=== PATIENT | female | born 1975 ===

== ENCOUNTER 2017-01-19 17:44 | Emergency (ER) | payer BC, OTHER ==
[2017-01-19 17:52] VITALS: BP 122/56; PULSE 68; RESP 18; TEMP 98; O2SAT 98
[2017-01-19] MEDS ORDERED: Sodium Chloride 0.9% 1,000 ML IV STA (18:17)
--- NOTE | 2017-01-19 18:24 | ED PDOC ---
HPI: Headache Time Seen by Provider: 01/19/17 18:12 Chief Complaint (Nursing): Headache Chief Complaint (Provider): Headache History Per: Patient History/Exam Limitations: no limitations Onset/Duration Of Symptoms: Days (x 3) Current Symptoms Are (Timing): Still Present Additional Complaint(s): Nathaniel is a 41 year old female with a past medical history of lupus who presents to the Emergency Department complaining of headache for 3 days. Patient states she woke up with headache. Pain in both side of her head. Denies vomiting, but feels a little nausea and shortness of breath. Admits to taking Tylenol with minor relief. Was referred to see vessel specialist. PMD: Cira Garrido Past Medical History Reviewed: Historical Data, Nursing Documentation, Vital Signs Vital Signs: Last Vital Signs Temp 98 F 01/19/17 17:50 Pulse 68 01/19/17 17:50 Resp 18 01/19/17 17:50 BP 122/56 L 01/19/17 17:50 Pulse Ox 98 01/19/17 17:50 - Medical History PMH: Migraine - Surgical History Surgical History: - Family History Family History: States: Unknown Family Hx - Immunization History Hx Tetanus Toxoid Vaccination: No Hx Influenza Vaccination: No Hx Pneumococcal Vaccination: No - Home Medications Home Medications: Ambulatory Orders Medication Instructions Recorded Naproxen [Naprosyn] 1 tab PO BID PRN #25 tab 05/03/15 Naproxen 1 tab PO Q12 PRN #6 tab 01/19/17 - Allergies Allergies/Adverse Reactions: Allergies Allergy/AdvReac Type Severity Reaction Status Date / Time No Known Allergies Allergy Verified 05/03/15 09:40 Review of Systems ROS Statement: Except As Marked, All Systems Reviewed And Found Negative Respiratory: Positive for: Shortness of Breath Gastrointestinal: Positive for: Nausea. Negative for: Vomiting Neurological: Positive for: Headache Physical Exam - Reviewed Nursing Documentation Reviewed: Yes Vital Signs Reviewed: Yes - Physical Exam Appears: Positive for: Well, Non-toxic Head Exam: Positive for: ATRAUMATIC, NORMAL INSPECTION, NORMOCEPHALIC Skin: Positive for: Normal Color Eye Exam: Positive for: Other (Horizontal nystagmus) Neck: Positive for: Normal Respiratory: Positive for: Normal Breath Sounds (Lungs clear to auscultation bilaterally) Extremity: Positive for: Normal ROM (5/5 upper and lower strength) Neurologic/Psych: Positive for: Alert, Oriented (x 3), Other. Negative for: Facial Droop (Finger to Nose Intact) - Laboratory Results Result Diagrams: 01/19/17 18:59 01/19/17 18:59 - ECG O2 Sat by Pulse Oximetry: 98 (RA) Pulse Ox Interpretation: Normal - Progress ED Course And Treament: HEAD CT: NAD CTA CHEST:IMPRESSION: 1. No CT evidence of pulmonary embolism. 2. Pulmonary nodule. For low-risk patients, no follow-up is necessary. For high- risk patients (smoking history or other known risk factors) an optional CT at 12 months could be performed. 3. Incidental/non-acute findings are described above. EKG: NSR 68BPM; NO ECTOPY NO ACUTE CHANGES Medical Decision Making Medical Decision Making: Time: 18:18 Plan: - CT Head without Contrast - EKG - BMP - Mangesium - Troponin I - CBC - D Dimer - Chest X-Ray - Sodium Chloride 0.;9% 1,000 ml IV 1,000 mls/hr - Reglan Time: 19:40 - CT Angio Chest Scribe Attestation: Documented by Ezequiel Valencia, acting as a scribe for Sebas Tsang PA-C Provider Scribe Attestation: All medical record entries made by the Scribe were at my direction and personally dictated by me. I have reviewed the chart and agree that the record accurately reflects my personal performance of the history, physical exam, medical decision making, and the department course for this patient. I have also personally directed, reviewed, and agree with the discharge instructions and disposition. Disposition - Clinical Impression Clinical Impression: Headache, Dyspnea - Patient ED Disposition Is Patient to be Admitted: No - Disposition Disposition: Routine/Home Disposition Time: 22:58 Condition: FAIR Prescriptions: Naproxen 1 tab PO Q12 PRN #6 tab PRN Reason: Pain, Moderate (4-7) Instructions: Tension Headache (ED), Dyspnea (ED) Forms: [facility] ([place]), [facility] ED School/Work Excuse
[2017-01-19 19:05] LABS: BASO % 0.6 % (0.0-2.0); EOS # 0.2 K/uL (0.0-0.7); EOS % 2.1 % (0.0-4.0); HEMATOCRIT 37.6 % (34.0-47.0); LYMPH # 2.4 K/uL (1.0-4.3); LYMPH % 28.9 % (20.0-40.0); MEAN CELL VOLUME 92.2 fl (81.0-99.0); MEAN CORPUSCULAR HEMOGLOBIN 31.1 pg (27.0-31.0); MEAN CORPUSCULAR HGB CONC 33.8 g/dL (33.0-37.0); MEAN PLATELET VOLUME 8.7 fl (7.2-11.7); MONO # 0.5 K/uL (0.0-0.8); MONO % 5.7 % (0.0-10.0); NEUT # 5.2 K/uL (1.8-7.0); NEUT % 62.7 % (50.0-75.0); NRBC % 0.1 % (0.0-0.0); RED CELL DISTRIBUTION WIDTH 13.5 % (11.5-14.5); WHITE BLOOD COUNT 8.3 K/uL (4.8-10.8)
[2017-01-19 19:14] LABS: BLOOD UREA NITROGEN 18 mg/dl (7-17); CALCIUM 9.3 mg/dL (8.4-10.2); CARBON DIOXIDE 28 mmol/L (22-30); CHLORIDE 103 mmol/L (98-107); GFR AFRICAN-AMERICAN > 60; GLUCOSE,RANDOM 94 mg/dL (65-105); MAGNESIUM 1.7 MG/DL (1.6-2.3); POTASSIUM 4.4 MMOL/L (3.6-5.0); SODIUM 141 mmol/l (132-148)
[2017-01-19] MEDS ORDERED: Sodium Chloride 0.9% 50 ML IV ONE (21:59)
[2017-01-19] MEDS ORDERED: Iodixanol 320 MG/ML 100 ML BOTTLE IV ONE (21:59)
--- NOTE | 2017-01-19 22:22 | CT ---
EXAM: CT Head Without Intravenous Contrast CLINICAL HISTORY: 41 years old, female; Pain; Headache; Other: Napoles's b/l sides; Patient HX: Dx lupus jan 2016; Additional info: Head ache TECHNIQUE: Axial computed tomography images of the head/brain without intravenous contrast. All CT scans at this facility use one or more dose reduction techniques, viz.: automated exposure control; ma/kV adjustment per patient size (including targeted exams where dose is matched to indication; i.e. head); or iterative reconstruction technique. Coronal and sagittal reformatted images were created and reviewed. COMPARISON: CT - HEAD^HEAD ROUTINE (ADULT) 2009-11-26 06:38 FINDINGS: Brain: No intracranial hemorrhage. No mass. No definite edema. Ventricles: No hydrocephalus. Bones/joints: No acute fracture. Soft tissues: Unremarkable. Sinuses: No acute sinusitis. Mastoid air cells: No mastoid effusion. Orbits: Unremarkable as visualized. IMPRESSION: 1. No acute intracranial abnormality.
--- NOTE | 2017-01-19 22:53 | CT ---
EXAM: CT Angiography Chest With Intravenous Contrast CLINICAL HISTORY: 41 years old, female; Signs and symptoms; Shortness of breath; Patient HX: SOB. Dx lupus jan 2016; Additional info: R/O pe TECHNIQUE: Axial computed tomographic angiography images of the chest with intravenous contrast using pulmonary embolism protocol. All CT scans at this facility use one or more dose reduction techniques, viz.: automated exposure control; ma/kV adjustment per patient size (including targeted exams where dose is matched to indication; i.e. head); or iterative reconstruction technique. MIP reconstructed images were created and reviewed. Coronal and sagittal reformatted images were created and reviewed. CONTRAST: 98 mL of VISIPAQUE administered intravenously. COMPARISON: No relevant prior studies available. FINDINGS: Pulmonary arteries: No pulmonary embolism. Aorta: No aneurysm. No dissection. Lungs: Minimal atelectasis/scarring. No consolidation. 0.3 cm LEFT lower lobe nodule. Pleural space: No significant effusion. No pneumothorax. Heart: Borderline cardiomegaly. No significant pericardial effusion. Bones/joints: No acute fracture. Soft tissues: Unremarkable. Lymph nodes: No pathologically enlarged lymph nodes. IMPRESSION: 1. No CT evidence of pulmonary embolism. 2. Pulmonary nodule. For low-risk patients, no follow-up is necessary. For high-risk patients (smoking history or other known risk factors) an optional CT at 12 months could be performed. 3. Incidental/non-acute findings are described above.
--- NOTE | 2017-01-20 07:05 | CARD ---
APPROVED REPORT EKG Measurement Heart [id number] <Conclusion> Normal sinus rhythm Normal ECG
--- NOTE | 2017-01-20 11:38 | RAD ---
HISTORY: sob COMPARISON: 11/26/2009 TECHNIQUE: Chest PA and lateral FINDINGS: LUNGS: No active pulmonary disease. PLEURA: No significant pleural effusion identified. No pneumothorax apparent. CARDIOVASCULAR: Normal. OSSEOUS STRUCTURES: No significant abnormalities. VISUALIZED UPPER ABDOMEN: Normal. OTHER FINDINGS: None. IMPRESSION: No active disease.
== END 2017-01-19 23:13 | disposition home or self-care (01) ==
LOC: H.ER 17:44
DX: G44.209 Tension-type headache, unspecified, not intractable (principal); R06.00 Dyspnea, unspecified; M32.9 Systemic lupus erythematosus, unspecified
CPT/HCPCS: 70450; 71020; 71275; 80048; 81025; 83735; 84484; 85025; 85378; 93005; 96374; 99284; J2765; J7040; Q9967